=== PATIENT | male | born 1940 | race Caucasian/White ===

== ENCOUNTER 2018-11-29 14:19 | Inpatient (IN) | payer OTHER ==
[2018-11-29] MEDS ORDERED: VANCOMYCIN IV PER PHARMACY 1 EACH MISC MISCELLANE PRN (14:58)
[2018-11-29] MEDS ORDERED: AMPICILLIN-SULBACTAM 3 GM in SODIUM CHLORIDE 0.9% 100 ML IVPB STA (15:01)
--- NOTE | 2018-11-29 15:03 | ED ---
General Adult HPI - General Chief complaint: Skin/Abscess/Foreign Body Stated complaint: Wound on lt elbow Time Seen by Provider: 11/29/18 14:22 Source: patient, family, RN notes reviewed Mode of arrival: ambulatory Limitations: no limitations, physical limitation - History of Present Illness Initial comments: 78-year-old male without any past medical history presents to the emergency department for a chief complaint of left elbow wound 2 weeks. Apparently patient has had edema of the left extremity upper extremity for years. Family member states he tried to drain this twice in the past few months on his own. She states that infection in the left elbow has been worsening since that time. She states that he saw an orthopedic physician in [place] who gave him antibiotics and put the arm in an OCL yesterday. However the physicians that he needs to go to the [facility] emergency department for admission. Family member states he is noncompliant with medicines and has not been taking his antibiotics. He denies any fevers or chills at home. He does admit to pain in the left elbow.Patient has no other complaints at this time including shortness of breath, chest pain, abdominal pain, nausea or vomiting, headache, or visual changes. - Related Data Home Medications Medication Instructions Recorded Confirmed No Known Home Medications 11/29/18 11/29/18 Allergies Allergy/AdvReac Type Severity Reaction Status Date / Time No Known Allergies Allergy Verified 11/29/18 14:46 Review of Systems ROS Statement: Those systems with pertinent positive or pertinent negative responses have been documented in the HPI. ROS Other: All systems not noted in ROS Statement are negative. Past Medical History Past Medical History: No Reported History History of Any Multi-Drug Resistant Organisms: None Reported Past Surgical History: No Surgical Hx Reported Past Psychological History: Unable to Obtain Smoking Status: Never smoker Past Alcohol Use History: None Reported Past Drug Use History: None Reported General Exam Limitations: no limitations, physical limitation General appearance: alert, in no apparent distress Head exam: Present: atraumatic, normocephalic, normal inspection Eye exam: Present: normal appearance, PERRL, EOMI. Absent: scleral icterus, conjunctival injection, periorbital swelling ENT exam: Present: normal exam, mucous membranes moist Neck exam: Present: normal inspection. Absent: tenderness, meningismus, lymphadenopathy Respiratory exam: Present: normal lung sounds bilaterally. Absent: respiratory distress, wheezes, rales, rhonchi, stridor Cardiovascular Exam: Present: regular rate, normal rhythm, normal heart sounds. Absent: systolic murmur, diastolic murmur, rubs, gallop, clicks Extremities exam: Present: full ROM (Patient has full range of motion of the left elbow), normal capillary refill (cap refill < 2 seconds, radial pulse 2+), joint swelling (erythema noted of left elbow with minimal edema), other ( Patient has a 5 cm x 5 cm open wound with purulent bah material to the proximal ulnar aspect of L forearm) Course Vital Signs 11/29/18 11/29/18 14:24 16:07 Temperature 97.8 F 98.0 F Pulse Rate 86 62 Respiratory 20 18 Rate Blood Pressure 167/88 161/96 O2 Sat by Pulse 96 100 Oximetry - Reevaluation(s) Reevaluation #1: 11/29/18 15:20 Patient refusing IV fluids 11/29/18 15:20 OCL removed from left arm, wound inspected Reevaluation #2: 11/29/18 16:33 Patient agrees to IV fluids Medical Decision Making - Medical Decision Making 78-year-old male presents to the emergency department for a chief complaint of left elbow wound 2 weeks. Patient is a poor historian, hard of hearing, does not have any past medical history or take any medications. This wound has been ongoing for the past 2 weeks. Patient initially presented with an OCL and unknown oral antibiotics. On exam patient is a 5 cm x 5 cm open wound on the ulnar aspect of the left proximal forearm.. No material present. CBC unremarkable although patient is slightly anemic with hemoglobin of 9.8. CMP shows a sodium of 128, hyponatremic. Family member states patient is not drinking water or eating solid foods, likely related to dehydration. Patient given a liter of fluids. Anion gap of 10. CMP otherwise unremarkable. X-ray of the left elbow shows a soft tissue defect with focal swelling over the dorsal surface of the proximal ulna. No evidence of air within the soft tissue. Lactic acid within normal limits. Patient was started on IV vancomycin and Unasyn. Will be admitted for continued IV antibiotics and further management of wound. - Lab Data Result diagrams: 11/29/18 15:28 11/29/18 15:28 Lab Results 11/29/18 11/29/18 11/29/18 Range/Units 15:28 15:28 15:28 WBC 7.6 (3.8-10.6) k/uL RBC 3.02 L (4.30-5.90) m/uL Hgb 9.8 L (13.0-17.5) gm/dL Hct 29.5 L (39.0-53.0) % MCV 97.9 (80.0-100.0) fL MCH 32.6 (25.0-35.0) pg MCHC 33.3 (31.0-37.0) g/dL RDW 12.9 (11.5-15.5) % Plt Count 578 H (150-450) k/uL Neutrophils % 87 % Lymphocytes % 6 % Monocytes % 5 % Eosinophils % 1 % Basophils % 0 % Neutrophils # 6.6 (1.3-7.7) k/uL Lymphocytes # 0.5 L (1.0-4.8) k/uL Monocytes # 0.4 (0-1.0) k/uL Eosinophils # 0.1 (0-0.7) k/uL Basophils # 0.0 (0-0.2) k/uL PT (9.0-12.0) sec INR (<1.2) APTT (22.0-30.0) sec Sodium 128 L (137-145) mmol/L Potassium 4.8 (3.5-5.1) mmol/L Chloride 95 L (98-107) mmol/L Carbon Dioxide 23 (22-30) mmol/L Anion Gap 10 mmol/L BUN 8 L (9-20) mg/dL Creatinine 0.45 L (0.66-1.25) mg/dL Est GFR (CKD-EPI)AfAm >90 (>60 ml/min/1.73 sqM) Est GFR (CKD-EPI)NonAf >90 (>60 ml/min/1.73 sqM) Glucose 102 H (74-99) mg/dL Plasma Lactic Acid Garrett 1.1 (0.7-2.0) mmol/L Calcium 8.4 (8.4-10.2) mg/dL Total Bilirubin 0.5 (0.2-1.3) mg/dL AST 16 L (17-59) U/L ALT 28 (21-72) U/L Alkaline Phosphatase 77 (38-126) U/L Total Protein 6.0 L (6.3-8.2) g/dL Albumin 3.1 L (3.5-5.0) g/dL 11/29/18 Range/Units 15:28 WBC (3.8-10.6) k/uL RBC (4.30-5.90) m/uL Hgb (13.0-17.5) gm/dL Hct (39.0-53.0) % MCV (80.0-100.0) fL MCH (25.0-35.0) pg MCHC (31.0-37.0) g/dL RDW (11.5-15.5) % Plt Count (150-450) k/uL Neutrophils % % Lymphocytes % % Monocytes % % Eosinophils % % Basophils % % Neutrophils # (1.3-7.7) k/uL Lymphocytes # (1.0-4.8) k/uL Monocytes # (0-1.0) k/uL Eosinophils # (0-0.7) k/uL Basophils # (0-0.2) k/uL PT 12.7 H (9.0-12.0) sec INR 1.2 H (<1.2) APTT 27.7 (22.0-30.0) sec Sodium (137-145) mmol/L Potassium (3.5-5.1) mmol/L Chloride (98-107) mmol/L Carbon Dioxide (22-30) mmol/L Anion Gap mmol/L BUN (9-20) mg/dL Creatinine (0.66-1.25) mg/dL Est GFR (CKD-EPI)AfAm (>60 ml/min/1.73 sqM) Est GFR (CKD-EPI)NonAf (>60 ml/min/1.73 sqM) Glucose (74-99) mg/dL Plasma Lactic Acid Garrett (0.7-2.0) mmol/L Calcium (8.4-10.2) mg/dL Total Bilirubin (0.2-1.3) mg/dL AST (17-59) U/L ALT (21-72) U/L Alkaline Phosphatase (38-126) U/L Total Protein (6.3-8.2) g/dL Albumin (3.5-5.0) g/dL Disposition Clinical Impression: Wound, open, arm, forearm, Hyponatremia, Hypochloremia, Anemia Disposition: ADMITTED IP TO THIS HOSP Condition: Fair Is patient prescribed a controlled substance at d/c from ED?: No Referrals: None,Stated [Primary Care Provider] - 1-2 days Time of Disposition: 16:35
[2018-11-29] MEDS: SODIUM CHLORIDE 0.9% 500 ML 500 ML IV SCH (15:21)
[2018-11-29] MEDS ORDERED: VANCOMYCIN 750 MG in SODIUM CHLORIDE 0.9% 250 ML IVPB ONE (15:30)
--- NOTE | 2018-11-29 15:50 | XR ---
EXAMINATION TYPE: XR elbow complete LT DATE OF EXAM: 11/29/2018 CLINICAL HISTORY: Injury one week ago with increasing pain and drainage, infection for 2 weeks. TECHNIQUE: Frontal, lateral and oblique images of the left elbow are obtained. COMPARISON: None FINDINGS: Demineralization is present. There is no acute fracture/dislocation evident in the left elb ow. No abnormal fat pad signs are seen. Soft tissue defect with focal swelling over dorsal surface p roximal ulna is noted without radiodense foreign body. IMPRESSION: As above.
[2018-11-29 15:51] LABS: ALT 28 U/L (21-72); AST 16 U/L (17-59); Albumin 3.1 g/dL (3.5-5.0); Alkaline Phosphatase 77 U/L (38-126); Anion Gap 10 mmol/L; Blood Urea Nitrogen 8 mg/dL (9-20); Calcium 8.4 mg/dL (8.4-10.2); Carbon Dioxide 23 mmol/L (22-30); Chloride 95 mmol/L (98-107); Glucose 102 mg/dL (74-99); Potassium 4.8 mmol/L (3.5-5.1); Sodium 128 mmol/L (137-145); Total Bilirubin 0.5 mg/dL (0.2-1.3)
[2018-11-29 15:52] LABS: Basophils % (A) 0 %; Eosinophils # (A) 0.1 k/uL (0-0.7); Eosinophils % (A) 1 %; HCT 29.5 % (39.0-53.0); HGB 9.8 gm/dL (13.0-17.5); Lymphocytes # (A) 0.5 k/uL (1.0-4.8); Lymphocytes % (A) 6 %; MCH 32.6 pg (25.0-35.0); MCHC 33.3 g/dL (31.0-37.0); MCV 97.9 fL (80.0-100.0); Mean Platelet Volume 6.2; Monocytes # (A) 0.4 k/uL (0-1.0); Monocytes % (A) 5 %; Neutrophils # (A) 6.6 k/uL (1.3-7.7); Neutrophils % (A) 87 %; Platelet Count 578 k/uL (150-450); RBC 3.02 m/uL (4.30-5.90); RDW 12.9 % (11.5-15.5); WBC 7.6 k/uL (3.8-10.6)
[2018-11-29 16:00] LABS: INR 1.2 (<1.2); Partial Thromboplastin Time 27.7 sec (22.0-30.0); Prothrombin Time 12.7 sec (9.0-12.0)
[2018-11-29] MEDS ORDERED: SODIUM CHLORIDE 0.9% 1,000 ML IV STA (16:18)
[2018-11-29] MEDS ORDERED: ACETAMINOPHEN TAB 325 MG TAB PO PRN (16:35)
[2018-11-29] MEDS ORDERED: traMADol 50 MG TAB PO PRN (16:35)
[2018-11-29] MEDS ORDERED: NALOXONE 0.4 MG/ML 1 ML VIAL IV PRN ×2 (16:35→18:51)
[2018-11-29 18:38] LABS: Appearance,Urine Clear (Clear); Bilirubin,Urine Negative (Negative); Blood,Urine Negative (Negative); Color,Urine Light Yellow; Glucose,Urine (UA) Negative (Negative); Ketones,Urine Negative (Negative); Leukocyte Esterase,Urine Negative (Negative); Nitrite,Urine Negative (Negative); PH, Urine 8.5 (5.0-8.0); Protein,Urine Negative (Negative); Specific Gravity,Urine 1.009 (1.001-1.035); Urobilinogen,Urine <2.0 mg/dL (<2.0)
--- NOTE | 2018-11-29 18:51 | P.HPIM ---
History of Present Illness H&P Date: 11/29/18 The patient is an 78-year-old male hard of hearing, with an unknown PMH presented to the ED with complaints of left elbow wound with swelling ongoing for several years with recent worsening. The patient notes that he has had swelling of the left elbow for many years though has not had good follow-up. He notes that he was seen by a surgeon in [place] who drained the elbow, place some stitches, and put him on oral antibiotics and advised him to follow-up with a hospital in the since he is a resident of [place]. The patient now notes that his left elbow wound continues to drain pus and is tender. The patient is accompanied by his ex- who notes that they hadn't spoken for nearly 30-40 years and he just recently had gotten in touch with her since he needed help. The patient is a very poor historian and repeatedly mentioned that he does not wish to stay in the hospital more than one night. The patient lives at home and was noted to be drinking juices, which as per his ex-, are his only source of nutrition. She notes that he has not been taking care of himself and does not take any of his medications. She however could not recall his medical history or the medications that he does take. Again, history is very hard to obtain since the patient is difficult to redirect and is fixated on only having his left elbow evaluated and leaving the hospital tomorrow. Patient however denied fever, chills, chest pain, shortness of breath , abdominal pain, nausea, vomiting. In the ED, the patient underwent a copperheads workup with WBC count 7.6, hemoglobin 9.8, platelets 578, and elbow x-ray showing soft tissue swelling overlying the left elbow. He received vancomycin, Unasyn, and 1 L of normal saline, and is being admitted to the medicine service for further management of left elbow ulcer. Review of Systems Pertinent positives and negatives as discussed in HPI, a complete review of systems was performed and all other systems are negative. Past Medical History Past Medical History: No Reported History History of Any Multi-Drug Resistant Organisms: None Reported Past Surgical History: No Surgical Hx Reported Past Psychological History: Unable to Obtain Smoking Status: Never smoker Past Alcohol Use History: None Reported Past Drug Use History: None Reported Medications and Allergies Home Medications Medication Instructions Recorded Confirmed Type No Known Home Medications 11/29/18 11/29/18 History Allergies Allergy/AdvReac Type Severity Reaction Status Date / Time No Known Allergies Allergy Verified 11/29/18 14:46 Physical Exam Vitals: Vital Signs Temp Pulse Resp BP Pulse Ox 11/29/18 17:10 18 11/29/18 16:07 98.0 F 62 18 161/96 100 11/29/18 14:24 97.8 F 86 20 167/88 96 Intake and Output 11/29/18 11/29/18 11/29/18 06:59 14:59 22:59 Other: Weight 44.18 kg General: Disheveled male, [non toxic], [no distress], [appears at stated age], [ normal weight] Derm: Thickened skin over hands, [no unusual ecchymoses] Head: [atraumatic], [normocephalic], [symmetric] Eyes: [EOMI], [no lid lag], [anicteric sclera], [pupils equal round reactive to light] ENT: [Nose and ears atraumatic], [no thrush], [no pharyngeal erythema], very poor dentition Neck: [No thyromegaly], [no cervical lymphadenopathy], [trachea midline], [ supple] Mouth: [no lip lesion], [mucus membranes moist] Cardiovascular: [S1S2 reg], [no murmur], [positive posterior tibial pulse bilateral], [no edema], [capillary refill less than 2 seconds] Lungs: [CTA bilateral], [no rhonchi, no rales] , [no accessory muscle use] Abdominal: [soft], [ nontender to palpation], [no guarding], [no appreciable organomegaly], [normal bowel sounds] Ext: [no gross muscle atrophy], left elbow ulcer 5-7 cm with purulent base and surrounding erythema, tender to palpation, [muscle strength 5 out of 5 in all 4 extremities grossly], [no contractures], finger clubbing noted Neuro: [ CN II-XI grossly intact], [light touch intact all 4 extremities], [ finger to nose within normal limits], Psych: [Alert], [oriented], [appropriate affect] Results CBC & Chem 7: 11/29/18 15:28 11/29/18 15:28 Labs: Abnormal Lab Results - Last 24 Hours (Table) 11/29/18 11/29/18 11/29/18 Range/Units 15:28 15:28 15:28 RBC 3.02 L (4.30-5.90) m/uL Hgb 9.8 L (13.0-17.5) gm/dL Hct 29.5 L (39.0-53.0) % Plt Count 578 H (150-450) k/uL Lymphocytes # 0.5 L (1.0-4.8) k/uL PT 12.7 H (9.0-12.0) sec INR 1.2 H (<1.2) Sodium 128 L (137-145) mmol/L Chloride 95 L (98-107) mmol/L BUN 8 L (9-20) mg/dL Creatinine 0.45 L (0.66-1.25) mg/dL Glucose 102 H (74-99) mg/dL AST 16 L (17-59) U/L Total Protein 6.0 L (6.3-8.2) g/dL Albumin 3.1 L (3.5-5.0) g/dL Assessment and Plan Plan: Left elbow ulcer -Started on Unasyn and vancomycin -Continue with normal saline 120 mL/h -Surgery and ID consults -Obtain wound culture Normocytic anemia -Unable to ascertain if patient has gotten a colonoscopy -Monitor for now Thrombocytosis -Possibly secondary to dehydration versus lung disease -Monitor for now Hyponatremia -Likely due to poor oral intake and malnutrition -Dietary consult -Monitor for now Moderate protein calorie malnutrition -Dietary consult -Social service consult DVT//GI prophylaxis -Heparin -Protonix The patient is admitted with an anticipated greater than than 2 midnight stay for evaluation of left elbow ulcer. CODE STATUS: Full code Discussed with: Patient Anticipated discharge date: 12/01/[address]: Home A total of 60 minutes was spent on the care of this complex patient more than 50 % of the time was spent in counseling and care coordination.
[2018-11-29 19:59] VITALS: BMI 19.0
[2018-11-30] MEDS: SODIUM CHLORIDE 0.9% 1,000 ML IV SCH ×4 (00:10→16:12)
[2018-11-30] MEDS: HEPARIN SODIUM,PORCINE 5,000 UNIT/ML 1 ML VIAL SQ SCH ×3 (00:10→16:01)
[2018-11-30] MEDS: AMPICILLIN-SULBACTAM 3 GM in SODIUM CHLORIDE 0.9% 100 ML IVPB SCH ×3 (00:12→16:01)
[2018-11-30] MEDS: VANCOMYCIN 750 MG in SODIUM CHLORIDE 0.9% 250 ML IVPB SCH ×3 (01:33→16:12)
--- NOTE | 2018-11-30 15:10 | P.PN ---
Subjective Progress Note Date: 11/30/18 The patient was seen and examined the bedside. He endorsed mild left elbow pain but otherwise denied fever, chills, chest pain, short of breath, nausea, vomiting. He notes that his elbow continues to have small amount of drainage. Objective - Vital Signs Vital signs: Vital Signs Temp 97.5 F L 11/30/18 07:00 Pulse 68 11/30/18 07:00 Resp 16 11/30/18 07:51 BP 127/68 11/30/18 07:00 Pulse Ox 100 11/30/18 07:00 Intake & Output 11/29/18 11/30/18 11/30/18 18:59 06:59 18:59 Intake Total 1000 Output Total 800 Balance 200 Weight 44.18 kg 44.18 kg Intake: Amount of Fluid Infused ( 1000 ml) Output: Urine 800 Other: Voiding Method Urinal # Voids 1 - Exam General: Non-toxic, in no acute distress, appears stated age, normal weight HEENT: NC/AT, anicteric sclerae, moist conjunctiva, no lid-lag, PERRLA Cardiovascular: S1/S2 wnl, no murmurs, rubs, or gallops Lungs: Clear to auscultation, normal respiratory effort, no accessory muscle use Abdominal: Soft, non-tender, non-distended, no guarding, rebound, or rigidity Skin: Warm, dry Extremities: Left elbow ulcer with purulent base, draining, tenderness with palpation Psychiatric: Alert and oriented to person, place and time, appropriate affect Neuro: CN II-XII grossly intact, Strength 5/5 in all 4 extremities, Speech intact, Sensation to light touch grossly intact throughout - Labs CBC & Chem 7: 11/29/18 15:28 11/29/18 15:28 Labs: Abnormal Lab Results - Last 24 Hours (Table) 11/29/18 11/29/18 11/29/18 Range/Units 15:28 15:28 15:28 RBC 3.02 L (4.30-5.90) m/uL Hgb 9.8 L (13.0-17.5) gm/dL Hct 29.5 L (39.0-53.0) % Plt Count 578 H (150-450) k/uL Lymphocytes # 0.5 L (1.0-4.8) k/uL PT 12.7 H (9.0-12.0) sec INR 1.2 H (<1.2) Sodium 128 L (137-145) mmol/L Chloride 95 L (98-107) mmol/L BUN 8 L (9-20) mg/dL Creatinine 0.45 L (0.66-1.25) mg/dL Glucose 102 H (74-99) mg/dL AST 16 L (17-59) U/L Total Protein 6.0 L (6.3-8.2) g/dL Albumin 3.1 L (3.5-5.0) g/dL Urine pH (5.0-8.0) 11/29/18 Range/Units 16:35 RBC (4.30-5.90) m/uL Hgb (13.0-17.5) gm/dL Hct (39.0-53.0) % Plt Count (150-450) k/uL Lymphocytes # (1.0-4.8) k/uL PT (9.0-12.0) sec INR (<1.2) Sodium (137-145) mmol/L Chloride (98-107) mmol/L BUN (9-20) mg/dL Creatinine (0.66-1.25) mg/dL Glucose (74-99) mg/dL AST (17-59) U/L Total Protein (6.3-8.2) g/dL Albumin (3.5-5.0) g/dL Urine pH 8.5 H (5.0-8.0) Microbiology - Last 24 Hours (Table) 11/29/18 15:46 Gram Stain - Preliminary Elbow - Left Wound Culture - Preliminary Assessment and Plan Plan: Left elbow ulcer -Continue with vancomycin and Unasyn -Continue with normal saline 120 mL/h -Surgery and ID consults, recs pending -We'll follow up wound culture Normocytic anemia -Unable to ascertain if patient has gotten a colonoscopy -Monitor for now Thrombocytosis -Possibly secondary to dehydration versus lung disease -Monitor for now Hyponatremia -Likely due to poor oral intake and malnutrition -Dietary consult -Monitor for now Moderate protein calorie malnutrition -Dietary consult -Social service consult DVT//GI prophylaxis -Heparin -Protonix The patient is admitted with an anticipated greater than than 2 midnight stay for evaluation of left elbow ulcer. CODE STATUS: Full code Discussed with: Patient Anticipated discharge date: 12/01/[address]: Home A total of 60 minutes was spent on the care of this complex patient more than 50 % of the time was spent in counseling and care coordination.
--- NOTE | 2018-11-30 15:47 | P.GSCN ---
History of Present Illness Consult date: 11/30/18 History of present illness: CHIEF COMPLAINT: Left open elbow wound HISTORY OF PRESENT ILLNESS: The patient is a 78 year old male seen and evaluated with his nurse and infectious disease team. Patient reports 16 year history of swelling proximal to left elbow. He is a [place] citizen from [facility] and had all of his care including chronic wound debridements at [place]. He reports for the last 1 week he had prior debridment with the wound being closed and now has left elbow swelling with moderate drainage. He came to the [place] as his [place] care has . He is hard of hearing. Xrays reviewed with concern of chronic wound and involvement of near joint space. He reports "I have no feeling" at the chronic ulcer. He reports possible previous biopsies. PAST MEDICAL HISTORY: See list PAST SURGICAL HISTORY: See list. MEDICATIONS: See list. ALLERGIES: See list. SOCIAL HISTORY: No illicit drug use FAMILY HISTORY: No reports of Crohn's disease or inflammatory bowel disease REVIEW OF ORGAN SYSTEMS: CONSTITUTIONAL: No fevers or chills HEENT: No troubles with vision or hearing. No reports of dysphagia. ENDOCRINE: No reports of thyroid disorders. No diabetes. CARDIOVASCULAR: No heart attack. No chest pain. RESPIRATORY: No shortness of breath or pneumonia. GASTROINTESTINAL: No reports of recent blood in stools. NEURO: No reports of stroke or seizure disorders. PSYCH: No depression or suicidal ideation HEMATOLOGIC: No easy bruising or bleeding LYMPHATIC: The patient denies any lumps and bumps around the neck. GENITOURINARY: Denies any blood in urine or increased urinary frequency. MUSCULOSKELETAL: Denies back pain, stiffness or joint arthritis. SKIN: Reports chronic wound along left elbow for 16 years. PHYSICAL EXAM: VITAL SIGNS: Reviewed. GENERAL: Well-developed in no acute distress. HEENT: No sclera icterus. Extraocular movements grossly intact. Moist buccal mucosa. Head is atraumatic, normocephalic. Hears conversational speech. No nasal drainage. Poor dentition NECK: Supple without lymphadenopathy. CHEST: Non-labored respirations and equal bilateral excursions. CARDIOVASCULAR: Regular rate with regular rhythm. Palpable 2+ radial pulses. ABDOMEN: Soft. Nondistended. MUSCULOSKELETAL: No clubbing, cyanosis or edema. Moderate edema involving left elbow. NEUROLOGIC: No focal or lateralizing signs. Cranial nerves II through XII grossly intact. PSYCH: Appropriate affect. Alert and oriented to person, place and time. SKIN: 4-5 cm ulcer insensate incorporating muscle lateral to left elbow with active purulent drainage. LABS: Reviewed STUDIES: Reviewed ASSESSMENT: 1. Chronic open left elbow wound PLAN: 1. Recommend defer to Ortho consultation as near left elbow joint space involvement 2. May need MRI to elucidate for depth of infection and joint space involvement 3. Infectious consultation. 4. Medical management of multiple medical co-morbidities including hyponatremia. Thank you for this kind consultation. Past Medical History Past Medical History: No Reported History Additional Past Medical History / Comment(s): somewhat a poor historian,pt stated he has'nt had much education.origianlly came from [facility]. [place], cataracts, pt stated for 16 years has had problem with fluid build up on lt arm (has been to [facility] to a dr )and an area on lt side of forehead which is improved. History of Any Multi-Drug Resistant Organisms: None Reported Past Surgical History: No Surgical Hx Reported Additional Past Surgical History / Comment(s): pt denies any sx Past Anesthesia/Blood Transfusion Reactions: No Reported Reaction Past Psychological History: Unable to Obtain Smoking Status: Never smoker Past Alcohol Use History: None Reported Past Drug Use History: None Reported - Past Family History Mother Family Medical History: CVA/TIA, Hypertension Additional Family Medical History / Comment(s): paralyzed Father Additional Family Medical History / Comment(s): at age 73 unk cause Medications and Allergies Home Medications Medication Instructions Recorded Confirmed Type No Known Home Medications 11/29/18 11/29/18 History Allergies Allergy/AdvReac Type Severity Reaction Status Date / Time No Known Allergies Allergy Verified 11/29/18 14:46 Surgical - Exam Vital Signs Temp Pulse Resp BP Pulse Ox 97.8 F 86 20 167/88 96 11/29/18 14:24 11/29/18 14:24 11/29/18 14:24 11/29/18 14:24 11/29/18 14:24 Results - Labs 11/29/18 15:28 11/29/18 15:28 Abnormal Lab Results - Last 24 Hours (Table) 11/29/18 11/29/18 11/29/18 Range/Units 15:28 15:28 15:28 RBC 3.02 L (4.30-5.90) m/uL Hgb 9.8 L (13.0-17.5) gm/dL Hct 29.5 L (39.0-53.0) % Plt Count 578 H (150-450) k/uL Lymphocytes # 0.5 L (1.0-4.8) k/uL PT 12.7 H (9.0-12.0) sec INR 1.2 H (<1.2) Sodium 128 L (137-145) mmol/L Chloride 95 L (98-107) mmol/L BUN 8 L (9-20) mg/dL Creatinine 0.45 L (0.66-1.25) mg/dL Glucose 102 H (74-99) mg/dL AST 16 L (17-59) U/L Total Protein 6.0 L (6.3-8.2) g/dL Albumin 3.1 L (3.5-5.0) g/dL Urine pH (5.0-8.0) 11/29/18 Range/Units 16:35 RBC (4.30-5.90) m/uL Hgb (13.0-17.5) gm/dL Hct (39.0-53.0) % Plt Count (150-450) k/uL Lymphocytes # (1.0-4.8) k/uL PT (9.0-12.0) sec INR (<1.2) Sodium (137-145) mmol/L Chloride (98-107) mmol/L BUN (9-20) mg/dL Creatinine (0.66-1.25) mg/dL Glucose (74-99) mg/dL AST (17-59) U/L Total Protein (6.3-8.2) g/dL Albumin (3.5-5.0) g/dL Urine pH 8.5 H (5.0-8.0) Microbiology - Last 24 Hours (Table) 11/29/18 15:46 Gram Stain - Preliminary Elbow - Left Wound Culture - Preliminary Diabetes panel 11/29/18 Range/Units 15:28 Sodium 128 L (137-145) mmol/L Potassium 4.8 (3.5-5.1) mmol/L Chloride 95 L (98-107) mmol/L Carbon Dioxide 23 (22-30) mmol/L BUN 8 L (9-20) mg/dL Creatinine 0.45 L (0.66-1.25) mg/dL Glucose 102 H (74-99) mg/dL Calcium 8.4 (8.4-10.2) mg/dL AST 16 L (17-59) U/L ALT 28 (21-72) U/L Alkaline Phosphatase 77 (38-126) U/L Total Protein 6.0 L (6.3-8.2) g/dL Albumin 3.1 L (3.5-5.0) g/dL Calcium panel 11/29/18 Range/Units 15:28 Calcium 8.4 (8.4-10.2) mg/dL Albumin 3.1 L (3.5-5.0) g/dL Pituitary panel 11/29/18 Range/Units 15:28 Sodium 128 L (137-145) mmol/L Potassium 4.8 (3.5-5.1) mmol/L Chloride 95 L (98-107) mmol/L Carbon Dioxide 23 (22-30) mmol/L BUN 8 L (9-20) mg/dL Creatinine 0.45 L (0.66-1.25) mg/dL Glucose 102 H (74-99) mg/dL Calcium 8.4 (8.4-10.2) mg/dL Adrenal panel 11/29/18 Range/Units 15:28 Sodium 128 L (137-145) mmol/L Potassium 4.8 (3.5-5.1) mmol/L Chloride 95 L (98-107) mmol/L Carbon Dioxide 23 (22-30) mmol/L BUN 8 L (9-20) mg/dL Creatinine 0.45 L (0.66-1.25) mg/dL Glucose 102 H (74-99) mg/dL Calcium 8.4 (8.4-10.2) mg/dL Total Bilirubin 0.5 (0.2-1.3) mg/dL AST 16 L (17-59) U/L ALT 28 (21-72) U/L Alkaline Phosphatase 77 (38-126) U/L Total Protein 6.0 L (6.3-8.2) g/dL Albumin 3.1 L (3.5-5.0) g/dL - Imaging Additional studies: Xray elbowed reviewed with large soft tissue defect near elbow joint space Assessment and Plan (1) Medical care unavailable Current Visit: Yes Status: Acute Code(s): Z75.9 - UNSP PROBLEM RELATED TO MED FACILITIES AND OTH HEALTH CARE SNOMED Code(s): 905867633 (2) Anemia Current Visit: Yes Status: Acute Code(s): D64.9 - ANEMIA, UNSPECIFIED SNOMED Code(s): 705675863 (3) Hypochloremia Current Visit: Yes Status: Acute Code(s): E87.8 - OTH DISORDERS OF ELECTROLYTE AND FLUID BALANCE, NEC SNOMED Code(s): 60292501 (4) Hyponatremia Current Visit: Yes Status: Acute Code(s): E87.1 - HYPO-OSMOLALITY AND HYPONATREMIA SNOMED Code(s): 28290062 (5) Wound, open, arm, forearm Current Visit: Yes Status: Acute Code(s): S51.809A - UNSPECIFIED OPEN WOUND OF UNSPECIFIED FOREARM, INIT ENCNTR SNOMED Code(s): 508376483
[2018-12-01] MEDS: HEPARIN SODIUM,PORCINE 5,000 UNIT/ML 1 ML VIAL SQ SCH ×4 (00:19→23:53)
[2018-12-01] MEDS: VANCOMYCIN 750 MG in SODIUM CHLORIDE 0.9% 250 ML IVPB SCH ×4 (00:24→23:53)
[2018-12-01] MEDS: PIPERACILLIN-TAZOBACTAM 3.375 GM in SODIUM CHLORIDE 0.9% 100 ML IVPB SCH ×3 (02:56→15:10)
[2018-12-01] MEDS: SODIUM CHLORIDE 0.9% 1,000 ML IV SCH ×3 (02:56→15:10)
--- NOTE | 2018-12-01 04:40 | CONS ---
CONSULTATION DATE OF SERVICE: 11/30/2018. REASON FOR CONSULTATION: Left forearm nonhealing wound with underlying infection. HISTORY OF PRESENT ILLNESS: The patient is an 78-year-old white male presenting to the ER with a chief complaints of progressive worsening of his wound to his left forearm that has been going on for the last 2 weeks. Apparently the patient did mention he had this wound for many years now and that has been previously evaluated and treated in [place]. Apparently the patient did have debridement of this wound and drainage. However, the patient is not clear about any cultures or any biopsy. As the patient said was getting older, he was unable to get any treatment there. Hence he came to [facility] ER for further evaluation of the same. The patient has been complaining of some pain to the left forearm wound area, more of a dull aching pain. Unable to further. Denies any foul-smelling drainage from it. Denies having any fevers, rigors or chills. Denies any chest pain, shortness of breath or cough. No abdominal pain or cough or any diarrhea. The patient was evaluated by the ER physician. The patient did have x-rays of the elbow which showed demineralization is present. No acute fracture or dislocation seen. No abdominal fat pad signs are seen or any foreign body. The patient has been afebrile and his white count was normal and the patient was started on vancomycin and Unasyn. He did have a culture obtained tissue culture showing gram- negative bacilli. Infectious Disease was consulted for further recommendation regarding antibiotic therapy. Unfortunately, the patient is currently refusing any further IV antibiotics saying that it is a poison and would not like to get any more poison into his system. REVIEW OF SYSTEMS: Positive points have been mentioned in HPI. Rest of the systems negative. PAST MEDICAL HISTORY: wound to the left forearm. No other major illnesses. PAST SURGICAL HISTORY: Drainage of this and debridement of this left forearm wound multiple times. SOCIAL HISTORY: The patient denies smoking, drinking or drug use. FAMILY HISTORY: No pertinent findings noticed. ALLERGIES: No known drug allergies. MEDICATION: Currently include the patient is on Tylenol, Unasyn, heparin, Narcan, multivitamin, vancomycin. PHYSICAL EXAMINATION: On examination blood pressure is 156/85 with a pulse of 69, temperature 98.1. He is 99% on room air. General description is an elderly male lying in bed in no distress. No tachypnea or accessory muscles of respiration use. HEENT examination shows no pallor or scleral icterus. Oral mucosal membranes are dry. No pharyngeal erythema or thrush. Neck: Trachea central. No thyromegaly. Lungs: Unlabored breathing. Clear to auscultation anteriorly. Heart S1, S2. Regular rate and rhythm. Abdomen soft, no tenderness. No guarding or rigidity. Extremities: No edema of the feet. Skin examination: No rash or mass palpable. Examination of the left forearm dorsal aspect with elbow area there is a wound with some slough tissue at the bottom. No surrounding redness. Did have some swelling. No foul smelling drainage. Neurological: Patient is awake, alert, oriented times three. Mood and affect normal. LABS: Hemoglobin 9.8, white count 7.7, BUN of 8, creatinine 0.45. Cultures currently showing a gram-negative. 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 PLAN: 1. MRI scan of the left forearm to determine etiology of this wound. 2. Patient subsequently debridement .. 3. Will be start the patient on Zosyn in view of the gram-negative in the initial culture, however, the patient despite explaining to him . 4. We will follow up on clinical condition and culture to further adjust medication if needed. Thank you for this consultation. We will follow this patient along with you. MMODL / IJN: [id number] /
[2018-12-01 11:04] LABS: HCT 31.6 % (39.0-53.0); HGB 10.3 gm/dL (13.0-17.5); MCH 31.9 pg (25.0-35.0); MCHC 32.8 g/dL (31.0-37.0); MCV 97.4 fL (80.0-100.0); Mean Platelet Volume 6.9; Platelet Count 436 k/uL (150-450); RBC 3.24 m/uL (4.30-5.90); RDW 13.3 % (11.5-15.5); WBC 5.4 k/uL (3.8-10.6)
[2018-12-01 11:20] LABS: Anion Gap 4 mmol/L; Blood Urea Nitrogen 9 mg/dL (9-20); Calcium 7.8 mg/dL (8.4-10.2); Carbon Dioxide 23 mmol/L (22-30); Chloride 105 mmol/L (98-107); Glucose 105 mg/dL (74-99); Sodium 132 mmol/L (137-145)
--- NOTE | 2018-12-01 11:33 | P.CNOR ---
History of Present Illness - [facility] Consult date: 12/01/18 History of present illness: The patient is an 78 year old male admitted to internal medicine with a chronic infected wound over his left elbow. The patient is a poor historian, is very hard of hearing and there is a language barrier that makes obtaining a history very difficult. He reports 16 year history of swelling proximal to left elbow. He is a [place] citizen from [facility] and had all of his care including chronic wound debridements at [place]. He reports for the last 1 week he had prior debridment with the wound being closed and now has left elbow swelling with moderate drainage. He came to the [facility] as his [place] care has . He is hard of hearing. He reports "I have no feeling" at the chronic ulcer. He reports possible previous biopsies Past Medical History Past Medical History: No Reported History Additional Past Medical History / Comment(s): somewhat a poor historian,pt stated he has'nt had much education.danette came from [facility]. [place], cataracts, pt stated for 16 years has had problem with fluid build up on lt arm (has been to [place] to a dr )and an area on lt side of forehead which is improved. History of Any Multi-Drug Resistant Organisms: None Reported Past Surgical History: No Surgical Hx Reported Additional Past Surgical History / Comment(s): pt denies any sx Past Anesthesia/Blood Transfusion Reactions: No Reported Reaction Past Psychological History: Unable to Obtain Smoking Status: Never smoker Past Alcohol Use History: None Reported Past Drug Use History: None Reported - Past Family History Mother Family Medical History: CVA/TIA, Hypertension Additional Family Medical History / Comment(s): paralyzed Father Additional Family Medical History / Comment(s): at age 73 unk cause Medications and Allergies Home Medications Medication Instructions Recorded Confirmed Type No Known Home Medications 11/29/18 11/29/18 History Allergies Allergy/AdvReac Type Severity Reaction Status Date / Time No Known Allergies Allergy Verified 11/29/18 14:46 Physical Examination the patient is resting comfortably in his bed. He is alert and able to answer questions, but is very hard of hearing. He demonstrates nonlabored breathing with symmetric chest expansion. His head is normocephalic and atraumatic. His abdomen is nonobese. A focused examination of the left arm was conducted. There is a dressing over the elbow that is saturated with purulent, foul- smelling drainage. The dressing was taken down and the elbow inspected. There is diffuse swelling and hypertrophic skin over the olecranon and a large open wound with active purulent drainage. There is minimal erythema and no warmth. There is no pain with passive range of motion of the elbow. There is decreased sensation around the area of ulceration. There is no exposed bone. Results x-rays of the left elbow show no acute bony pathology or signs of osteomyelitis. On the lateral view there is soft tissue swelling consistent with his ulcer. - Labs Labs: Abnormal Lab Results - Last 24 Hours (Table) 12/01/18 12/01/18 Range/Units 10:36 10:36 RBC 3.24 L (4.30-5.90) m/uL Hgb 10.3 L (13.0-17.5) gm/dL Hct 31.6 L (39.0-53.0) % Sodium 132 L (137-145) mmol/L Creatinine 0.47 L (0.66-1.25) mg/dL Glucose 105 H (74-99) mg/dL Calcium 7.8 L (8.4-10.2) mg/dL Microbiology - Last 24 Hours (Table) 11/29/18 15:46 Gram Stain - Preliminary Elbow - Left Wound Culture - Preliminary Gram Neg Bacilli 11/29/18 15:28 Blood Culture - Preliminary Blood No Growth after 24 hours H & H 11/29/18 12/01/18 Range/Units 15:28 10:36 Hgb 9.8 L 10.3 L (13.0-17.5) gm/dL Hct 29.5 L 31.6 L (39.0-53.0) % Coagulation 11/29/18 Range/Units 15:28 INR 1.2 H (<1.2) Result Diagrams: 12/01/18 10:36 12/01/18 10:36 Assessment and Plan (1) Wound, open, arm, forearm Current Visit: Yes Status: Acute Code(s): S51.809A - UNSPECIFIED OPEN WOUND OF UNSPECIFIED FOREARM, INIT ENCNTR SNOMED Code(s): 989940607 Plan: The patient has a grossly 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 There is no sign of septic arthritis on clinical exam as he has no pain with passive range of motion of the elbow. There is however gross purulence and nonviable tissue over the olecranon and proximal ulna. I agree in obtaining an MRI to better evaluate the extent of the infection and rule out underlying osteomyelitis as a cause for continued infection. Due to the patient's poor hearing and a language barrier it is difficult to communicate and gauge his understanding of a surgical plan. I do think that he would benefit from an operative debridement and application of a wound VAC in the operating room. The chart states that he would like to be discharged after one day in the hospital and I stressed to him that he will likely be in the hospital for several days. His MRI is scheduled for tomorrow. I will plan on performing a surgical debridement and application of a VAC dressing following the MRI either tomorrow afternoon or Sunday. Dr. Wagner from infectious disease has been consulted as well. I informed the patient that I will place the initial VAC dressing and following surgery all wound care and bedside VAC dressing changes and wound care will be under the direction of the wound team both in the hospital and as an outpatient. I stressed that he will need close follow-up both with infectious disease and the wound center to get his wound to heal; surgery is only the initial step in getting his wound to heal. The patient was also informed about the possibility of need for further surgery including repeat debridements, grafting, and possibly amputation. I explained this in a way that he could understand and he seemed agreeable. We will continue to follow and make recommendations accordingly. Time with Patient: Greater than 30
--- NOTE | 2018-12-01 19:58 | P.PN ---
Subjective Progress Note Date: 12/01/18 The patient was seen and examined the bedside. He endorsed improved left elbow pain and denied fever, chills, chest pain, short of breath, nausea, vomiting. He notes that his elbow continues to have small amount of drainage. Objective - Vital Signs Vital signs: Vital Signs Temp 97.9 F 12/01/18 14:20 Pulse 63 12/01/18 14:20 Resp 18 12/01/18 15:28 BP 133/78 12/01/18 14:20 Pulse Ox 99 12/01/18 14:20 Intake & Output 12/01/18 12/01/18 12/02/18 06:59 18:59 06:59 Intake Total 400 Output Total 700 700 Balance 400 -700 -700 Intake: Oral 400 Output: Urine 700 700 Other: Voiding Method Urinal # Voids 1 1 - Exam General: Non-toxic, in no acute distress, appears stated age, normal weight HEENT: NC/AT, anicteric sclerae, moist conjunctiva, no lid-lag, PERRLA Cardiovascular: S1/S2 wnl, no murmurs, rubs, or gallops Lungs: Clear to auscultation, normal respiratory effort, no accessory muscle use Abdominal: Soft, non-tender, non-distended, no guarding, rebound, or rigidity Skin: Warm, dry Extremities: Left elbow ulcer with overlying dressing, clean, and dry Psychiatric: Alert and oriented to person, place and time, appropriate affect Neuro: CN II-XII grossly intact, Strength 5/5 in all 4 extremities, Speech intact, Sensation to light touch grossly intact throughout - Labs CBC & Chem 7: 12/01/18 10:36 12/01/18 10:36 Labs: Abnormal Lab Results - Last 24 Hours (Table) 12/01/18 12/01/18 Range/Units 10:36 10:36 RBC 3.24 L (4.30-5.90) m/uL Hgb 10.3 L (13.0-17.5) gm/dL Hct 31.6 L (39.0-53.0) % Sodium 132 L (137-145) mmol/L Creatinine 0.47 L (0.66-1.25) mg/dL Glucose 105 H (74-99) mg/dL Calcium 7.8 L (8.4-10.2) mg/dL Microbiology - Last 24 Hours (Table) 11/29/18 15:28 Blood Culture - Preliminary Blood No Growth after 48 hours 11/29/18 15:46 Gram Stain - Preliminary Elbow - Left Wound Culture - Preliminary Gram Neg Bacilli Assessment and Plan Plan: Left elbow ulcer -Surgery, ID, and Orthopedics consults appreciated -Will undergo debridement with wound-vac placement tomorrow by Ortho -Continue with vancomycin and Zosyn -Continue with normal saline 120 mL/h Normocytic anemia -Unable to ascertain if patient has gotten a colonoscopy -Monitor for now Thrombocytosis, resolved Hyponatremia, improved -Likely due to poor oral intake and malnutrition -Dietary consult -Monitor for now Moderate protein calorie malnutrition -Dietary consult -Social service consult DVT//GI prophylaxis -Heparin -Protonix Discussed with: Patient Anticipated discharge date: 12/04/[address]: Home A total of 35 minutes was spent on the care of this complex patient more than 50 % of the time was spent in counseling and care coordination.
--- NOTE | 2018-12-02 00:05 | PN ---
PROGRESS NOTE DATE OF SERVICE: 12/01/2018. REASON FOR FOLLOWUP: Left forearm chronic wound with secondary infection. INTERVAL HISTORY: The patient is currently afebrile. He is breathing comfortably. Denies having any chest pain. No shortness of breath or cough. No worsening pain to the left forearm. No abdominal pain. No diarrhea. PHYSICAL EXAMINATION: Blood pressure 123/72 with a pulse of 63, temperature 97.9. He is 99% on room air. General description is an elderly male lying in bed in no distress. Respiratory system: Unlabored breathing. Clear to auscultation anteriorly. Heart S1, S2. Regular rate and rhythm. Abdomen is soft. No tenderness. Left forearm the wound is currently dressed up. No obvious drainage on the dressing. LABS: Hemoglobin 10.1, white count 5.4 with a BUN of 9 and creatinine 0.47. Local wound cultures showing presumptive Staph aureus Citrobacter. DIAGNOSTIC IMPRESSION AND PLAN: Patient with left forearm chronic nonhealing wound. Awaiting an MRI of the affected areas to determine the depth of the infection surgical debridement and deep cultures. In view of the patient refused IV antibiotic therapy, we will discontinue Zosyn and start the patient on oral for Citrobacter and continue vancomycin to cover for the Staph aureus. Continue supportive care. MMODL / IJN: [id number] /
[2018-12-02] MEDS: SODIUM CHLORIDE 0.9% 1,000 ML IV SCH ×3 (04:59→19:58)
[2018-12-02] MEDS ORDERED: VANCOMYCIN TROUGH DUE 1 EACH MISC MISCELLANE ONE (07:00)
[2018-12-02] MEDS: VANCOMYCIN 750 MG in SODIUM CHLORIDE 0.9% 250 ML IVPB SCH ×2 (07:52→15:00)
[2018-12-02] MEDS: HEPARIN SODIUM,PORCINE 5,000 UNIT/ML 1 ML VIAL SQ SCH ×3 (07:52→23:49)
[2018-12-02] MEDS: CIPROFLOXACIN HCL 500 MG TAB PO SCH ×2 (08:16→19:58)
--- NOTE | 2018-12-02 10:50 | P.PN ---
Subjective Progress Note Date: 12/02/18 This patient is an 78-year-old male that presented to [facility] ED yesterday for evaluation and treatment of a left elbow wound. The patient is a [place] citizen from [place], there is a language barrier present, and he is also a poor historian, as well as hard of hearing. Patient has reported a 16 year history with swelling to the left elbow, and with multiple debridements for his elbow in [place]. He reports he had a debridement one week prior, with the wound being closed, and now has experienced increased drainage from the site. Currently, the patient notes pain in left elbow. He denies any other orthopedic complaints at this time. He denies fevers or chills. Vital signs stable. Objective - Vital Signs Vital signs: Vital Signs Temp 97.0 F L 12/02/18 06:05 Pulse 61 12/02/18 06:05 Resp 18 12/02/18 06:05 BP 153/73 12/02/18 06:05 Pulse Ox 99 12/02/18 06:05 Intake & Output 12/01/18 12/02/18 12/02/18 18:59 06:59 18:59 Intake Total 250 Output Total 700 2100 Balance -700 -1850 Intake: Oral 250 Output: Urine 700 2100 Other: Voiding Method Urinal Urinal # Voids 1 - Exam On examination, the patient is sitting up in bed in no acute distress. The patient is alert and oriented 3. On inspection of the left elbow, there is a dressing in place. The dressing is clean, dry, and intact. The left upper extremity is warm and well perfused with brisk capillary refill. Patient is able to wiggle his fingers with no issue. Neurovascular is intact of the left upper extremity. - Labs CBC & Chem 7: 12/01/18 10:36 12/01/18 10:36 Labs: Abnormal Lab Results - Last 24 Hours (Table) 12/01/18 12/01/18 Range/Units 10:36 10:36 RBC 3.24 L (4.30-5.90) m/uL Hgb 10.3 L (13.0-17.5) gm/dL Hct 31.6 L (39.0-53.0) % Sodium 132 L (137-145) mmol/L Creatinine 0.47 L (0.66-1.25) mg/dL Glucose 105 H (74-99) mg/dL Calcium 7.8 L (8.4-10.2) mg/dL Microbiology - Last 24 Hours (Table) 11/29/18 15:46 Gram Stain - Preliminary Elbow - Left Wound Culture - Preliminary Citrobacter braakii Presumptive Staph aureus 11/29/18 15:28 Blood Culture - Preliminary Blood No Growth after 48 hours - Imaging and Cardiology Left elbow xray 11/29/18: no acute bony abnormalities, no signs of osteomylitis. Soft tissue swelling consistent with ulcer. Assessment and Plan Assessment: Open wound of the left elbow Plan: - We will plan for a surgical debridement of the elbow wound with wound VAC placement by Dr. Briggs either this afternoon or Sunday, pending MRI results , consent, and medical clearance. - All antibiotics and wound care will be deferred to infectious disease post- operatively. - We will continue to follow and make recommendations accordingly. - Patient discussed with Dr. Briggs.
--- NOTE | 2018-12-02 14:32 | MR ---
EXAMINATION TYPE: MR elbow LT wo/w con DATE OF EXAM: 12/02/2018 COMPARISON: Left elbow x-ray from 3 days earlier. HISTORY: L elbow ulcer w/ joint space involvement CONTRAST: Standard multiplanar, multisequence MRI departmental protocol utilizing 4.5 mL intravenous Gadavist g adolinium contrast. FINDINGS: Correlating with x-ray at level of proximal forearm there is heterogeneous nonenhancing sorin rly isointense soft tissue swelling along dorsal surface with skin breakthrough that has deeper subcu taneous extension seen best axial image 9, there is involvement of the dorsal surface subcutaneous fa t with irregular heterogeneous oval shaped structure extending proximally to level of joint space wit h rim low T1 and T2 signal measuring 4.8 x 1.5 cm sagittal image 20 that shows just deep to this rim peripheral irregular enhancement with heterogeneous nodular enhancement also identified along the per iphery. There is small focus of increased T2 signal and edema in the dorsal or posterior aspect of th e olecranon seen best sagittal image 27 series 1201 and 701 measuring roughly 1.7 x 0.9 cm x 1.6 cm t ransversely axial image 24 series 801. No osseous cortical destruction is evident. Distal humerus and proximal ulna show no suspicious edema or enhancement. Joint space shows no signif icant fluid or fluid collection with rim peripheral enhancement. IMPRESSION: Ulceration and dorsal surface fluid collection suspicious for abscess in old hematoma with area of ac uw osteomyelitis unable to exclude involving the posterior aspect of the olecranon as detailed above .
--- NOTE | 2018-12-02 15:29 | P.PN ---
Subjective Progress Note Date: 12/02/18 Principal diagnosis: left elbow swelling Patient is an 78-year-old male who is extremely hard of hearing with no past medical history who initially presented to the emergency department with complaints of a left elbow wound with swelling. In the ER the patient underwent a comprehensive workup with a white blood cell count of 7.6, hemoglobin 9.8, platelets of 58, and elbow x-ray showing soft tissue swelling. He was placed on Vanco, Unasyn, and received 1 L of normal saline. He was admitted for further monitoring of left elbow infected ulcer. He reports that he received some care for this in [place] but was [place] Infectious disease was consulted who recommended continuing IV antibiotics. Orthopedics was consulted who recommended debridement of the area and an MRI. MRI is currently pending and OR is planned for 5 PM today. Patient seen and examined at bedside. No chest pain, SOB or nausea. Complaining about not eating. Does not seem to understand severity of illness. Objective - Vital Signs Vital signs: Vital Signs Temp 97.5 F L 12/02/18 13:58 Pulse 55 L 12/02/18 13:58 Resp 18 12/02/18 13:58 BP 161/79 12/02/18 13:58 Pulse Ox 100 12/02/18 13:58 Intake & Output 12/01/18 12/02/18 12/02/18 18:59 06:59 18:59 Intake Total 250 Output Total 700 2100 Balance -700 -1850 Intake: Oral 250 Output: Urine 700 2100 Other: Voiding Method Urinal Urinal # Voids 1 1 - Exam General: non toxic, no distress, appears at stated age Derm: Dressing applied to left arm, warm, dry Head: atraumatic, normocephalic, symmetric Eyes: EOMI, no lid lag, anicteric sclera Mouth: no lip lesion, mucus membranes moist Cardiovascular: S1S2 reg, no murmur, positive posterior tibial pulse bilateral, Lungs: CTA bilateral, no rhonchi, no rales , no accessory muscle use Abdominal: soft, nontender to palpation, no guarding, no appreciable organomegaly Ext: no gross muscle atrophy, no edema, no contractures Neuro: CN II-XI grossly intact, no focal neuro deficits Psych: Alert, oriented, appropriate affect - Labs CBC & Chem 7: 12/01/18 10:36 02/03/19 10:36 Labs: Microbiology - Last 24 Hours (Table) 11/29/18 15:46 Gram Stain - Preliminary Elbow - Left Wound Culture - Preliminary Citrobacter braakii Presumptive Staph aureus 11/29/18 15:28 Blood Culture - Preliminary Blood No Growth after 48 hours Assessment and Plan Assessment: Left elbow ulcer with infection -Ortho and ID recs appreciated -Plan is for surgery today -Patient refusing vanco, on cipro -Patient without insurance Normocytic anemia - stable - outpatient follow up regard colonoscopy - follow CBC - Fe studies Hyponatremia, improving -Likely due to poor oral intake and malnutrition -follow electrolytes Moderate protein calorie malnutrition -Dietary recs -Social work consult - Patient only drinks juice at home, not willing to change habits Thrombocytosis, resolved DVT prophylaxis: heparin Discussed with: Patient Anticipated discharge date: 2-[address]: Home A total of 35 minutes was spent on the care of this complex patient more than 50 % of the time was spent in counseling and care coordination.
[2018-12-02] MEDS ORDERED: SODIUM CHLORIDE 0.9% 1,000 ML IV ONE (15:47)
[2018-12-02] MEDS ORDERED: LACTATED RINGERS 1,000 ML IV ONE (16:04)
[2018-12-02] MEDS ORDERED: MIDAZOLAM (PF) 2 MG/2 ML VIAL IV PRN (16:51)
[2018-12-02] MEDS ORDERED: fentaNYL (PF) 50 MCG/ML 2 ML AMP IV PRN (16:51)
[2018-12-02] MEDS ORDERED: LACTATED RINGERS 1,000 ML IV SCH (17:00)
[2018-12-02] MEDS ORDERED: ceFAZolin 1,000 MG in DEXTROSE/WATER 1 50ML.BAG IVPB STA (17:21)
[2018-12-02] MEDS ORDERED: LIDOCAINE 1% INJ 10MG/ML (20 ML MDV) ONE (17:51)
[2018-12-02] MEDS ORDERED: fentaNYL (PF) 50 MCG/ML 2 ML AMP ONE (17:51)
[2018-12-02] MEDS ORDERED: PROPOFOL 10 MG/ML 20 ML VIAL IV ONE (17:51)
--- NOTE | 2018-12-02 19:04 | P.OP ---
Date of Procedure: 12/02/18 Preoperative Diagnosis: 1. 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 Same Procedure(s) Performed: 1. Irrigation and surgical debridement of left chronic olecranon ulcer measuring 5 cm in length and 4 cm in width (nonviable skin, fat, and subcutaneous tissue was sharply debrided with a scalpel down to the layer of the fascia) 2. 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 He is been previously managed in [place]. The patient is a very poor historian due to a language barrier and difficulty hearing but states that he was told by his orthopedic surgeon in [place] that he had maxed out his care there and was sent to the [place] for further management. He is recently had surgical debridements and an attempt at closure in the office by his orthopedic [place] surgeon. He presented to the emergency department here and was admitted under internal medicine. He was initially seen by general surgery who deferred treatment orthopedics for concern about septic arthritis. At the time of my evaluation there is absolutely no clinical indication of septic arthritis as he had full pain-free range of motion of his elbow. He did have a chronic draining wound with purulent malodorous drainage. An MRI was obtained which showed an area of ulceration, and abscess, and osteomyelitis of the olecranon. My recommendation was to debride all of the non-viable tissue back to healthy bleeding base, irrigate the wound, and applied a wound VAC. The patient was agreeable to this. We discussed the potential risks and complications of surgery including but not limited to risk of anesthesia, continued infection, spread of the infection both locally and systemically, damage to local blood vessels or nerves , need for further surgery including repeat debridements, grafting, and amputation. The patient understands the potential risks and provided his his consent to go forward with surgery. Operative Findings: The wound was debrided back to healthy bleeding tissue. There is no exposed bone. Description of Procedure: The patient was identified in preoperative holding and the correct left arm was marked with my initials. I reviewed the consent form with the patient and all of his questions were answered. He was then brought back to the operating room. He was positioned on the OR table where a sedation was given by anesthesia. The left arm was then prepped and draped in the standard sterile fashion. Prior to starting surgery timeout was performed identifying the correct patient, operative extremity, and procedure. I began by thoroughly exploring the wound. There are multiple Prolene sutures and nonviable-appearing skin which were removed. There were also several deep Vicryl stitches which were also removed. The flap of skin over the olecranon was dusky and appeared nonviable. The skin was sharply debrided using a scalpel back to healthy, bleeding skin edges. There was area of purulence proximally and medially which was opened and debrided. A scalpel and curet was used to thoroughly debride the wound until all nonviable tissue was removed and the wound base was bleeding and appeared healthy. There is no exposed bone. Deep culture swabs were taken and a portion of the nonviable skin was sent to pathology to rule out malignancy. The wound was then thoroughly irrigated using 1 L of sterile saline and cystoscopy tubing. The wound was windowed with 1 inch Ioban and a wound VAC was placed, covered, and hooked up to suction. The suction was set to 125 mmHg and was found to have no leaks. The drapes were taken down and the left arm was wrapped with an Zain wrap. The patient was awoken from his sedation, transferred to a gurney and brought to PACU and procedure well. [facility] was required as a skilled logging assistant for patient positioning and application of wound VAC. Plan: The patient is going to be readmitted to the floor. He will receive IV antibiotics under the discretion of infectious disease. His wound VAC has been set to 125 mm of continuous suction. The wound appeared to be thoroughly debrided and back to healthy, bleeding tissue. I have no plans for further surgical intervention. We will take down the wound VAC on postoperative day #2, inspect the wound and then defer all further wound care to the wound team. He would likely benefit from home VAC dressing changes. I would also recommend a nutrition consult. We will continue to closely follow while he is in the hospital.
[2018-12-02] MEDS: HYDROmorphone 1 MG/ML 1 ML SYRINGE IVP ONE ×2 (19:17→19:36)
[2018-12-03] MEDS: SODIUM CHLORIDE 0.9% 1,000 ML IV SCH ×3 (05:58→23:10)
--- NOTE | 2018-12-03 06:13 | PN ---
PROGRESS NOTE DATE OF SERVICE: 12/02/2018 REASON FOR FOLLOWUP: Chronic infected left forearm ulcer. INTERVAL HISTORY: The patient is afebrile. The patient was seen earlier this morning. The patient has been breathing comfortably. Pain to the left forearm is currently controlled. Denies having any chest pain, shortness of breath or cough. No abdominal pain. No diarrhea. The patient did have MRI of the left elbow complete with concern for possible osteomyelitis. The patient subsequently taken to the OR and is status post irrigation and debridement of the left chronic olecranon ulcer with deep cultures and wound VAC was applied. PHYSICAL EXAMINATION: On examination, blood pressure is 168/82 with a pulse of 52, temperature 97.9. General description is an elderly male lying in bed in no distress. RESPIRATORY SYSTEM: Unlabored breathing, clear to auscultation anteriorly. HEART: S1, S2. Regular rate and rhythm. ABDOMEN: Soft, no tenderness. Left arm is currently dressed. No obvious drainage on the dressing. LABS: Wound culture finalized with MSSA and Citrobacter. Deep OR cultures currently pending. DIAGNOSTIC IMPRESSION AND PLAN: Patient with left olecranon osteomyelitis in a patient with a chronic nonhealing wound, status post debridement and deep cultures. Antibiotic will be changed to cefepime 2 grams q.12 to cover for both bacteria. The patient will need a PICC line for outpatient IV antibiotic therapy and possible placement will be discussing further with the porter sample case. Continue supportive care. MMODL / IJN: [id number] /
[2018-12-03] MEDS: HEPARIN SODIUM,PORCINE 5,000 UNIT/ML 1 ML VIAL SQ SCH ×2 (07:24→16:19)
[2018-12-03] MEDS: CEFEPIME 2 GM in SODIUM CHLORIDE 0.9% 50 ML IVPB SCH ×2 (07:27→22:18)
--- NOTE | 2018-12-03 12:16 | P.PN ---
Subjective Progress Note Date: 12/03/18 This patient is an 78-year-old male that presented to [facility] ED 10/31/18 for evaluation and treatment of a left elbow wound. The patient is a [place] citizen from [place], there is a language barrier present, and he is also a poor historian, as well as hard of hearing. Patient has reported a 16 year history with swelling to the left elbow, and with multiple debridements for his elbow in [place]. He reports he had a debridement one week prior, with the wound being closed, and now has experienced increased drainage from the site. Patient underwent a debridement in the operating room of this wound yesterday and an application of wound VAC with Dr. Briggs. Today is post-operative day #1. Patient states his pain in the left elbow is well-controlled. He states he is having no issues moving his fingers or hand. He denies numbness or tingling of the hand. He denies any new complaints today. Vital signs stable. Objective - Vital Signs Vital signs: Vital Signs Temp 97.9 F 12/03/18 07:00 Pulse 62 12/03/18 07:00 Resp 18 12/03/18 07:00 BP 159/77 12/03/18 07:00 Pulse Ox 99 12/03/18 07:00 Intake & Output 12/02/18 12/03/18 12/03/18 18:59 06:59 18:59 Intake Total 900 400 Output Total 20 Balance 880 400 Intake: IV 900 Oral 400 Output: Estimated Blood Loss 20 Other: Voiding Method Urinal Urinal # Voids 2 2 - Exam On examination, the patient is sitting up in bed in no acute distress. The patient is alert and oriented 3. On inspection of the left elbow, there is a wound VAC in place that is dressed with an Zain wrap. The dressing is clean, dry , and intact. Mild swelling of the left hand. The left upper extremity is warm and well perfused with brisk capillary refill. Left radial pulse palpable. Patient is able to wiggle his fingers with no issue. Neurovascular is intact of the left upper extremity. Sensation is intact to light touch of the left hand. - Labs CBC & Chem 7: 12/01/18 10:36 12/01/18 10:36 Labs: Microbiology - Last 24 Hours (Table) 11/29/18 15:46 Gram Stain - Final Elbow - Left Wound Culture - Final Citrobacter braakii Staphylococcus aureus 11/29/18 15:28 Blood Culture - Preliminary Blood No Growth after 72 hours Assessment and Plan Assessment: Open wound of the left elbow s/p debridement and wound VAC application Plan: - We will plan to change the left elbow wound VAC tomorrow, on postoperative day #2. Wound care will then be transferred to infectious disease. - Antibiotics per infectious disease. - Surgical specimen from left elbow sent to pathology. We will continue to follow for results. - Consult to dietitian placed to assess nutrition intake. - We will continue to follow and make recommendations accordingly. - Patient discussed with Dr. Briggs.
--- NOTE | 2018-12-03 16:03 | P.PN ---
Subjective Progress Note Date: 12/03/18 (delayed charting patient seen at 1330) Principal diagnosis: left elbow swelling Patient is an 78-year-old male who is extremely hard of hearing with no past medical history who initially presented to the emergency department with complaints of a left elbow wound with swelling. In the ER the patient underwent a comprehensive workup with a white blood cell count of 7.6, hemoglobin 9.8, platelets of 58, and elbow x-ray showing soft tissue swelling. He was placed on Vanco, Unasyn, and received 1 L of normal saline. He was admitted for further monitoring of left elbow infected ulcer. He reports that he received some care for this [place] but [place] Infectious disease was consulted who recommended continuing IV antibiotics. Orthopedics was consulted who recommended debridement of the area and an MRI. MRI showed abscess and possible osteomyelitis. He went for I and D with ortho on 12/02 and wound vac was placed. Patient seen and examined at bedside. He denies any pain in his elbow. No chest pain, SOB. Has constipation but does not want any medications. He states everything is fixed from the surgery. Had a long discussion with him that there is an infection in that elbow and may be extending down to the joint and he will need continued antibiotic therapy. He does not want any IV therapies at home as he states give him toxemia. Discussed with the patient that he will need antibiotic therapy as he could have worsening of this infection which could lead to requirements for repeated surgery. Patient states he understands but feels that the risks of antibiotics are high. We discussed him taking oral antibiotics and he indicates that he may take them at discharge but does not believe he needs any "poisons" in his system. He believes that continuing his juice diet which kept him healthy for 80 years and will continue to keep him healthy. Patient is alert and oriented 3 and does acknowledge that he has an infection however he does not want IV antibiotics, but is willing to take them here. I did discuss with him that this will increase his likelihood for need for readmission as well as worsening of the infection. I did discuss with him that he will need to follow with doctors at discharge for monitoring of his wound and infection, he indicates that he likely will not do this as well. He also has not been able to produce a social security number states that one of his friends can bring in his card. Case management has not been able to get in touch with this friend. I have introduced myself as Dr. Roland several times and indicated that I am a physician. However, the patient still referrs to me asking permission from his male doctor (ID) and surgeon. Objective - Vital Signs Vital signs: Vital Signs Temp 98.7 F 12/03/18 15:00 Pulse 68 12/03/18 15:00 Resp 20 12/03/18 15:00 BP 147/74 12/03/18 15:00 Pulse Ox 96 12/03/18 15:00 Intake & Output 12/02/18 12/03/18 12/03/18 18:59 06:59 18:59 Intake Total 900 400 400 Output Total 20 500 Balance 880 400 -100 Weight 44.18 kg Intake: IV 900 Oral 400 400 Output: Urine 500 Estimated Blood Loss 20 Other: Voiding Method Urinal Urinal # Voids 2 2 - Exam General: non toxic, no distress, appears at stated age Derm: Dressing applied to left arm with wound vac in place + edema of left hand. , warm, dry Head: atraumatic, normocephalic, symmetric Eyes: EOMI, no lid lag, anicteric sclera Mouth: no lip lesion, mucus membranes moist Cardiovascular: S1S2 reg, no murmur, positive posterior tibial pulse bilateral, Lungs: CTA bilateral, no rhonchi, no rales , no accessory muscle use Abdominal: soft, nontender to palpation, no guarding, no appreciable organomegaly Ext: no gross muscle atrophy, no edema, no contractures Neuro: CN II-XI grossly intact, no focal neuro deficits Psych: Alert, oriented, appropriate affect - Labs CBC & Chem 7: 12/01/18 10:36 12/01/18 10:36 Labs: Microbiology - Last 24 Hours (Table) 12/02/18 18:30 Anaerobic Culture - Preliminary Elbow - Left 12/02/18 18:30 Wound Culture - Preliminary Elbow - Left 11/29/18 15:46 Gram Stain - Final Elbow - Left Wound Culture - Final Citrobacter braakii Staphylococcus aureus 11/29/18 15:28 Blood Culture - Preliminary Blood No Growth after 72 hours Assessment and Plan Assessment: Left elbow ulcer with infection 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 Patient is not willing to take IV antibiotics at home, ID notified by CM. Patient ideally would benefit from IV abx but has no insurnace and is not willing to take them (see above detailed discussion). He will also likely be non compliant with oral medications but is willing to try them. -cefepime -Patient without insurance Normocytic anemia - stable - outpatient follow up regard colonoscopy - follow CBC - Fe studies pending Hyponatremia, improving -Likely due to poor oral intake and malnutrition -follow electrolytes Moderate protein calorie malnutrition -Dietary recs -Social work consult - Patient only drinks juice at home, not willing to change habits Thrombocytosis, resolved DVT prophylaxis: heparin Discussed with: Patient Anticipated discharge date:1-[address]: Home A total of 40 minutes was spent on the care of this complex patient more than 50 % of the time was spent in counseling and care coordination.
--- NOTE | 2018-12-04 00:04 | PN ---
PROGRESS NOTE DATE OF SERVICE: 12/03/2018. REASON FOR FOLLOWUP: Left olecranon bursitis with underlying osteomyelitis. INTERVAL HISTORY: The patient is currently afebrile. He is breathing comfortably. Denies having any chest pain or any cough. Denies pain to the left forearm. No diarrhea. PHYSICAL EXAMINATION: Blood pressure is 147/74 with a pulse of 68, temperature 98.7, he is 96% on room air. GENERAL DESCRIPTION: An elderly male lying in bed in no distress. RESPIRATORY SYSTEM: Unlabored breathing. Clear to auscultation anteriorly. HEART: S1, S2. Regular rate and rhythm. ABDOMEN: Soft, no tenderness. Left arm elbow wound is currently covered with wound VAC. LABS: No new labs been obtained today. Wound culture positive for Citrobacter and MSSA. Anaerobic culture so far negative. DIAGNOSTIC IMPRESSION AND PLAN: Patient with chronic nonhealing wound to the left forearm and elbow area. The patient is status post extensive debridement with evidence of recurrent osteomyelitis. Culture positive for Citrobacter and MSSA. The patient is currently on cefepime to cover for both pathogen. Unfortunately, the patient has been refusing IV antibiotic and a PICC line. It would be hard to place because of inability to provide any insurance documents to the case work aide. If the patient continues to refuse PICC line, antibiotic can be transitioned to oral Cipro and Keflex. Local wound care, will benefit with wound VAC, however, if that cannot be arranged can be transitioned to silver dressing. This were discussed in detail with the case work aide. Continue supportive care. MMODL / IJN: [id number] /
[2018-12-04] MEDS: HEPARIN SODIUM,PORCINE 5,000 UNIT/ML 1 ML VIAL SQ SCH ×4 (01:29→23:59)
[2018-12-04] MEDS: SODIUM CHLORIDE 0.9% 1,000 ML IV SCH ×3 (06:24→23:58)
[2018-12-04] MEDS: CEFEPIME 2 GM in SODIUM CHLORIDE 0.9% 50 ML IVPB SCH ×2 (07:31→20:29)
--- NOTE | 2018-12-04 10:27 | P.PN ---
Subjective Progress Note Date: 12/04/18 The patient is doing well this morning and his pain is well-controlled. He has no acute complaints. Objective - Vital Signs Vital signs: Vital Signs Temp 97.8 F 12/04/18 05:50 Pulse 46 L 12/04/18 05:50 Resp 20 12/04/18 05:50 BP 145/68 12/04/18 05:50 Pulse Ox 96 12/04/18 05:50 Intake & Output 12/03/18 12/04/18 12/04/18 18:59 06:59 18:59 Intake Total 400 500 Output Total 500 Balance -100 500 Weight 44.18 kg Intake: Oral 400 500 Output: Urine 500 Other: Voiding Method Urinal # Voids 1 - Exam A focused exam of the left upper extremity was conducted. The wound VAC was taken down. The wound appears clean with no purulence. There is a healthy bed of granulation tissue beginning to form. - Labs CBC & Chem 7: 12/01/18 10:36 12/01/18 10:36 Labs: Abnormal Lab Results - Last 24 Hours (Table) 12/01/18 Range/Units 10:36 Iron 38 L (65-175) ug/dL TIBC 190 L (228-460) ug/dL Microbiology - Last 24 Hours (Table) 12/02/18 18:30 Wound Culture - Preliminary Elbow - Left 11/29/18 15:28 Blood Culture - Preliminary Blood No Growth after 96 hours 12/02/18 18:30 Anaerobic Culture - Preliminary Elbow - Left Assessment and Plan (1) Wound, open, arm, forearm Current Visit: Yes Status: Acute Code(s): S51.809A - UNSPECIFIED OPEN WOUND OF UNSPECIFIED FOREARM, INIT ENCNTR SNOMED Code(s): 643293285 Plan: I will defer to infectious disease for further recommendation on antibiotics and wound care. We took down the VAC dressing this morning and the wound appeared clean with no purulence. I think he would benefit from home VAC dressing changes if he will allow. I understand that compliance is difficult. I tried to and stressed the importance of compliance with wound care recommendations. We will assist with nursing to place a VAC dressing this morning and then defer further wound care to infectious disease. I've no plans for further surgical intervention at this time. He is okay to discharge from an orthopedic standpoint.
--- NOTE | 2018-12-04 11:50 | P.PN ---
Subjective Progress Note Date: 12/04/18 Principal diagnosis: left elbow swelling Patient is an 78-year-old male who is extremely hard of hearing with no past medical history who initially presented to the emergency department with complaints of a left elbow wound with swelling. In the ER the patient underwent a comprehensive workup with a white blood cell count of 7.6, hemoglobin 9.8, platelets of 58, and elbow x-ray showing soft tissue swelling. He was placed on Vanco, Unasyn, and received 1 L of normal saline. He was admitted for further monitoring of left elbow infected ulcer. He reports that he received some care for this in [place] Infectious disease was consulted who recommended continuing IV antibiotics. Orthopedics was consulted who recommended debridement of the area and an MRI. MRI showed abscess and possible osteomyelitis. He went for I and D with ortho on 12/02 and wound vac was placed. Wound vac changed on 12/04. Patient will not be a candidate for IV abx as he is not willling to receive them and has no insurance at this time. He is also not willing to have a wound vac at home and has been refusing multiple blood draws. ID has mad eoral antibiotic recs for discharge in hope that the patient will take them, but patient states he may not take them. ID also recommends silver dressing if patient unable to have wound vac. Patient refused blood work again this morning. Patient seen and examined at bedside. He denies any pain in his elbow. Denies any chest pain, shortness of breath, diarrhea, or constipation. He tells he is not willing to talk about his constipation today. Again expressed the need to take medications such as antibiotics when he leaves and he is unsure if he would be willing to take those. Objective - Vital Signs Vital signs: Vital Signs Temp 97.8 F 12/04/18 05:50 Pulse 46 L 12/04/18 05:50 Resp 20 12/04/18 05:50 BP 145/68 12/04/18 05:50 Pulse Ox 96 12/04/18 05:50 Intake & Output 12/03/18 12/04/18 12/04/18 18:59 06:59 18:59 Intake Total 400 500 Output Total 500 Balance -100 500 Weight 44.18 kg Intake: Oral 400 500 Output: Urine 500 Other: Voiding Method Urinal # Voids 1 - Exam General: non toxic, no distress, appears at stated age Derm: Dressing applied to left arm with wound vac in place + edema of left hand. , warm, dry Head: atraumatic, normocephalic, symmetric Eyes: EOMI, no lid lag, anicteric sclera Cardiovascular: S1S2 reg, no murmur, positive posterior tibial pulse bilateral, Lungs: CTA bilateral, no rhonchi, no rales , no accessory muscle use Abdominal: soft, nontender to palpation, no guarding, no appreciable organomegaly Ext: no gross muscle atrophy, no edema, no contractures Psych: Alert, oriented, appropriate affect - Labs CBC & Chem 7: 12/01/18 10:36 12/01/18 10:36 Labs: Abnormal Lab Results - Last 24 Hours (Table) 12/01/18 Range/Units 10:36 Iron 38 L (65-175) ug/dL TIBC 190 L (228-460) ug/dL Microbiology - Last 24 Hours (Table) 12/02/18 18:30 Wound Culture - Preliminary Elbow - Left 11/29/18 15:28 Blood Culture - Preliminary Blood No Growth after 96 hours 12/02/18 18:30 Anaerobic Culture - Preliminary Elbow - Left Assessment and Plan Assessment: Left elbow ulcer with infection 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 Patient is not willing to take IV antibiotics at home, and unable to have wound vac. Plan is IV ABX and wound vac X 48 hours more and then home on cipro and keflex (will have filled at our pharmacy to increase likely quick of patient getting Rx filled), will also plan on supplying patient with dressing supplies -cefepime Normocytic anemia - stable - Patient refusing outpatient follow-up with PCP - follow CBC - Ferritin low normal patient not willing for supplements at this time. Hyponatremia, improving -Likely due to poor oral intake and malnutrition -follow electrolytes (Patient refusing IVF and lab draws) Moderate protein calorie malnutrition -Dietary recs -Social work - Patient only drinks juice at home, not willing to change habits Thrombocytosis, resolved Due to patients aversion to antibiotics and lack of social resources he is at high risk for readmission. As outline above we will do everything we can to help him be successful in the outpatient setting. DVT prophylaxis: heparin Discussed with: Patient, CM, nursing Anticipated discharge date: Sunday Anticipated discharge place: Home A total of 35 minutes was spent on the care of this complex patient more than 50 % of the time was spent in counseling and care coordination.
--- NOTE | 2018-12-04 22:38 | PN ---
PROGRESS NOTE DATE OF SERVICE: 12/04/2018. REASON FOR FOLLOWUP: The left wound and osteomyelitis. INTERVAL HISTORY: The patient is currently afebrile, has been breathing comfortably. Denies having any chest pain. No cough. No abdominal pain. the left forearm area. PHYSICAL EXAMINATION: Blood pressure is 119/60 with a pulse of 52, temperature of 98.2, he is 98% on room air. General description is an elderly male lying in bed in no distress. Respiratory system: Unlabored breathing. Clear to auscultation anteriorly. Heart S1, S2. Regular rate and rhythm. Abdomen soft. No tenderness. Left elbow wound currently covered with wound VAC. LABORATORY DATA: No new has been obtained today. Wound cultures showed Acinetobacter MSSA. DIAGNOSTIC IMPRESSION/PLAN: Patient with chronic wound to the left elbow forearm area in this patient who did have a component of underlying osteomyelitis. Culture positive for Citrobacter and this patient is currently on , continue to follow. Unfortunately, the patient has not been able to hence the case as you would have benefit from continuation of IV antibiotic and the wound VAC. Continue with supportive care at this point. MMODL / IJN: [id number] /
[2018-12-05] MEDS: SODIUM CHLORIDE 0.9% 1,000 ML IV SCH ×2 (05:54→15:50)
[2018-12-05] MEDS: CEFEPIME 2 GM in SODIUM CHLORIDE 0.9% 50 ML IVPB SCH (08:14)
[2018-12-05] MEDS: HEPARIN SODIUM,PORCINE 5,000 UNIT/ML 1 ML VIAL SQ SCH ×2 (08:14→15:50)
--- NOTE | 2018-12-05 11:39 | P.PN ---
Subjective Progress Note Date: 12/05/18 This patient is an 78-year-old male that presented to [facility] ED 10/31/18 for evaluation and treatment of a left elbow wound. The patient is a [place] citizen from [place], there is a language barrier present, and he is also a poor historian, as well as hard of hearing. Patient has reported a 16 year history with swelling to the left elbow, and with multiple debridements for his elbow in [place]. He reports he had a debridement one week prior, with the wound being closed, and now has experienced increased drainage from the site. Patient underwent a debridement in the operating room of this wound yesterday and an application of wound VAC with Dr. Briggs. Today is post-operative day #3. Patient states his pain in the left elbow is well-controlled. He states he is having no issues moving his fingers or hand. He denies numbness or tingling of the hand. He denies any new complaints today. Vital signs stable. Objective - Vital Signs Vital signs: Vital Signs Temp 98 F 12/04/18 22:00 Pulse 46 L 12/04/18 22:00 Resp 20 12/04/18 22:00 BP 149/75 12/04/18 22:00 Pulse Ox 99 12/04/18 22:00 Intake & Output 12/04/18 12/05/18 12/05/18 18:59 06:59 18:59 Intake Total 650 100 Balance 650 100 Weight 44.18 kg Intake: Oral 650 100 Other: Voiding Method Urinal # Voids 1 2 - Exam On examination, the patient is sitting up in bed in no acute distress. The patient is alert and oriented 3. On inspection of the left elbow, there is a wound VAC in place. The left upper extremity is warm and well perfused with brisk capillary refill. Left radial pulse palpable. Patient is able to wiggle his fingers with no issue. Neurovascular is intact of the left upper extremity. Sensation is intact to light touch of the left hand. - Labs CBC & Chem 7: 12/01/18 10:36 12/01/18 10:36 Labs: Microbiology - Last 24 Hours (Table) 12/02/18 18:30 Gram Stain - Final Elbow - Left Wound Culture - Final 11/29/18 15:28 Blood Culture - Preliminary Blood No Growth after 120 hours Assessment and Plan Assessment: Open wound of the left elbow s/p debridement and wound VAC application Plan: - Wound VAC placed yesterday. We will defer wound care to infectious disease moving forward. - Antibiotics per infectious disease. - Surgical specimen from left elbow sent to pathology revealed benign skin with subcutaneous abscess. - No plans for further surgical intervention at this time. Patient ok for discharge from orthopedic standpoint. - Patient discussed with Dr. Briggs.
--- NOTE | 2018-12-05 12:26 | P.PN ---
Subjective Progress Note Date: 12/05/18 Principal diagnosis: Patient is an 78-year-old male who is extremely hard of hearing with no past medical history who initially presented to the emergency department with complaints of a left elbow wound with swelling. In the ER the patient underwent a comprehensive workup with a white blood cell count of 7.6, hemoglobin 9.8, platelets of 58, and elbow x-ray showing soft tissue swelling. He was placed on Vanco, Unasyn, and received 1 L of normal saline. He was admitted for further monitoring of left elbow infected ulcer. He reports that he received some care for this in [place] but [place] Infectious disease was consulted who recommended continuing IV antibiotics. Orthopedics was consulted who recommended debridement of the area and an MRI. MRI showed abscess and possible osteomyelitis. He went for I and D with ortho on 12/02 and wound vac was placed. Wound cultures grew Citrobacter braaki and Staphylococcus aureus. Wound vac changed on 12/04. Patient will not be a candidate for IV abx as he is not willling to receive them and has no insurance at this time. He is also not willing to have a wound vac at home and has been refusing multiple blood draws. ID has made oral antibiotic recs for discharge in hope that the patient will take them, but patient states he may not take them. ID also recommends silver dressing if patient unable to have wound vac. Patient seen and examined at bedside lay recumbent in bed wound VAC in place on left elbow patient denies any pain. Patient excited about being discharged home tomorrow. I discussed plan of care patient reported that he would follow- up for wound care as needed. Otherwise no acute events overnight Objective - Vital Signs Vital signs: Vital Signs Temp 98 F 12/04/18 22:00 Pulse 46 L 12/04/18 22:00 Resp 20 12/04/18 22:00 BP 149/75 12/04/18 22:00 Pulse Ox 99 12/04/18 22:00 Intake & Output 12/04/18 12/05/18 12/05/18 18:59 06:59 18:59 Intake Total 650 100 Balance 650 100 Weight 44.18 kg Intake: Oral 650 100 Other: Voiding Method Urinal # Voids 1 2 - Exam General: non toxic, no distress, appears at stated age Derm: Dressing applied to left arm with wound vac in place + edema of left hand. , warm, dry Head: atraumatic, normocephalic, symmetric Eyes: EOMI, no lid lag, anicteric sclera Cardiovascular: S1S2 reg, no murmur, positive posterior tibial pulse bilateral, Lungs: CTA bilateral, no rhonchi, no rales , no accessory muscle use Abdominal: soft, nontender to palpation, no guarding, no appreciable organomegaly Ext: no gross muscle atrophy, no edema, no contractures Psych: Alert, oriented, appropriate affect - Labs CBC & Chem 7: 12/01/18 10:36 12/01/18 10:36 Labs: Microbiology - Last 24 Hours (Table) 12/02/18 18:30 Gram Stain - Final Elbow - Left Wound Culture - Final 11/29/18 15:28 Blood Culture - Preliminary Blood No Growth after 120 hours Assessment and Plan Assessment: Left elbow ulcer with infection 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 Patient is not willing to take IV antibiotics at home, and unable to have wound vac. Plan is IV ABX and wound vac X for the next 24 hours and then home on cipro and keflex (will have filled at our pharmacy to increase likely quick of patient getting Rx filled), will also plan on supplying patient with dressing supplies -cefepime Normocytic anemia - stable - Patient refusing outpatient follow-up with PCP - follow CBC - Ferritin low normal patient not willing for supplements at this time. Hyponatremia, improving up to 132 today from 128 -Likely due to poor oral intake and malnutrition -follow electrolytes (Patient refusing IVF and lab draws) Moderate protein calorie malnutrition -Dietary recs -Social work - Patient only drinks juice at home, not willing to change habits Thrombocytosis, resolved Due to patients aversion to antibiotics and lack of social resources he is at high risk for readmission. As outline above we will do everything we can to help him be successful in the outpatient setting. DVT prophylaxis: heparin Discussed with: Patient, CM, nursing Anticipated discharge date: Sunday Anticipated discharge place: Home A total of 35 minutes was spent on the care of this complex patient more than 50 % of the time was spent in counseling and care coordination.
[2018-12-05] MEDS: CEFEPIME 2 GM in SODIUM CHLORIDE 0.9% 100 ML IVPB SCH (21:32)
[2018-12-05 23:04] VITALS: PULSE 48; RESP 16
[2018-12-06] MEDS: HEPARIN SODIUM,PORCINE 5,000 UNIT/ML 1 ML VIAL SQ SCH ×2 (01:16→08:15)
[2018-12-06] MEDS: SODIUM CHLORIDE 0.9% 1,000 ML IV SCH ×2 (01:16→08:15)
[2018-12-06 06:12] VITALS: BP 135/63; TEMP 98.2
--- NOTE | 2018-12-06 07:46 | PN ---
PROGRESS NOTE DATE OF SERVICE: 12/05/2018. REASON FOR FOLLOWUP: Left olecranon nonhealing wound with underlying osteomyelitis. INTERVAL HISTORY: The patient is currently afebrile, has been breathing comfortably. Denies having any chest pain or any cough. No pain in the left elbow/forearm wound area. No abdominal pain, no diarrhea with antibiotic therapy. PHYSICAL EXAMINATION: On examination, blood pressure 143/69 with a pulse of 61, temperature of 98. He is 96% on room air. General description is an elderly male lying in bed in no distress. RESPIRATORY SYSTEM: Unlabored breathing, clear to auscultation anteriorly. HEART: S1, S2. Regular rate and rhythm. ABDOMEN: Soft, no tenderness. Left wound is currently covered with wound VAC. No surrounding redness. LABS: No new labs have been obtained today. DIAGNOSTIC IMPRESSION AND PLAN: Patient with chronic nonhealing wound to the left elbow and forearm area. The patient is status post extensive debridement with evidence of olecranon osteomyelitis. Unfortunately, the patient is unable to provide his social security number so his insurance or benefits could be tracked down as the patient could benefit from a continuation of the wound VAC and IV antibiotic therapy. Will re-evaluate the wound tomorrow. Continue with cefepime 2 grams q.12 hours to cover for both the cultures. Continue supportive care. MMODL / IJN: [id number] /
[2018-12-06] MEDS: CEFEPIME 2 GM in SODIUM CHLORIDE 0.9% 100 ML IVPB SCH (08:14)
--- NOTE | 2018-12-06 08:51 | P.DS ---
Providers Date of admission: 12/01/18 14:27 Expected date of discharge: 12/06/18 Attending physician: Cathi Bolivar MD Consults: 11/29/18 16:49 Consult Physician Stat Consulting Provider: Lynne Wagner Consult Reason/Comments: open wound Do you want consulting provider notified?: Already Contacted 11/30/18 07:40 Consult Physician Urgent Consulting Provider: Tara Wilkinson Consult Reason/Comments: L elbow ulcer Do you want consulting provider notified?: Already Contacted 12/01/18 10:28 Consult Physician Urgent Consulting Provider: Damir Briggs Consult Reason/Comments: L elbow wound involving the joint space Do you want consulting provider notified?: Yes Primary care physician: Stated None - Discharge Diagnosis(es) (1) Unstageable pressure ulcer of left elbow Current Visit: Yes Status: Acute (2) Osteomyelitis of left elbow Current Visit: Yes Status: Acute (3) Normocytic anemia Current Visit: Yes Status: Acute (4) Moderate protein-energy malnutrition Current Visit: Yes Status: Acute (5) Thrombocytosis Current Visit: Yes Status: Acute Hospital Course: Patient is an 78-year-old male who is extremely hard of hearing with no past medical history who initially presented to the emergency department with complaints of a left elbow wound with swelling. In the ER the patient underwent a comprehensive workup with a white blood cell count of 7.6, hemoglobin 9.8, platelets of 58, and elbow x-ray showing soft tissue swelling. He was placed on Vanco, Unasyn, and received 1 L of normal saline. He was admitted for further monitoring of left elbow infected ulcer. He reports that he received some care for this [place] but [place] Infectious disease was consulted who recommended continuing IV antibiotics. Orthopedics was consulted who recommended debridement of the area and an MRI. MRI showed abscess and possible osteomyelitis. He went for I and D with ortho on 12/02 and wound vac was placed. Wound cultures grew Acinobater Citrobacter braaki and MS Staphylococcus aureus. Wound vac changed on 12/04. Patient will not be a candidate for IV abx as he is not willling to receive them and has no insurance at this time. He is also not willing to have a wound vac at home and has been refusing multiple blood draws. ID has made oral antibiotic recs for discharge in hope that the patient will take them, but patient states he may not take them. The patient was transitioned to oral antibiotics with the guidance of infectious disease to continue Keflex and ciprofloxacin for another 3 weeks post discharge. Patient is subsequently discharged home in stable condition after removal of his wound VAC with plans to follow-up for wound care with Dr. Briggs. This discharge process took approximately 35 minutes. Focused exam Extremities: Wound VAC on the left elbow in place, left upper extremity with palpable radial and ulnar pulses, neurovascularly intact. Patient Condition at Discharge: Good Plan - Discharge Summary Discharge Rx Participant: No New Discharge Prescriptions: New Cephalexin [Keflex] 500 mg PO Q12HR #42 cap Ciprofloxacin HCl [Cipro] 500 mg PO BID 21 Days #42 tab Discharge Medication List Cephalexin [Keflex] 500 mg PO Q12HR #42 cap 12/06/18 [Rx] Ciprofloxacin HCl [Cipro] 500 mg PO BID 21 Days #42 tab 12/06/18 [Rx] Follow up Appointment(s)/Referral(s): None,Stated [Primary Care Provider] - 1-2 days Damir Briggs MD [Medical Doctor] - 12/13/18 9:30 am Activity/Diet/Wound Care/Special Instructions: Please make sure you follow up with your Medicaid process after discharge. Discharge Disposition: HOME SELF-CARE
--- NOTE | 2018-12-06 09:01 | PN ---
PROGRESS NOTE DATE OF SERVICE: 12/05/2018 REASON FOR FOLLOWUP: Left olecranon nonhealing wound with underlying osteomyelitis. INTERVAL HISTORY: The patient is currently afebrile, has been breathing comfortably. Denies having any chest pain or any cough. No pain in the left elbow/forearm wound area. No abdominal pain, no diarrhea with antibiotic therapy. PHYSICAL EXAMINATION: On examination, blood pressure 143/69 with a pulse of 61, temperature of 98. He is 96% on room air. General description is an elderly male lying in bed in no distress. RESPIRATORY SYSTEM: Unlabored breathing, clear to auscultation anteriorly. HEART: S1, S2. Regular rate and rhythm. ABDOMEN: Soft, no tenderness. Left wound is currently covered with wound VAC. No surrounding redness. LABS: No new labs have been obtained today. DIAGNOSTIC IMPRESSION AND PLAN: Patient with chronic nonhealing wound to the left elbow and forearm area. The patient is status post extensive debridement with evidence of olecranon osteomyelitis. Unfortunately, the patient is unable to provide his social security number so his insurance or benefits could be tracked down as the patient could benefit from a continuation of the wound VAC and IV antibiotic therapy. Will re-evalute the wound tomorrow. Continue with cefepime 2 gram q.12 hours to cover for both the culture. Continue supportive care. MMODL / IJN: [id number] /
[2018-12-06] MEDS ORDERED: SILVER sulfADIAZINE Cream 400 GM 1 APPLIC APPLIC TOPICAL SCH (21:00)
--- NOTE | 2018-12-09 19:36 | CDI ---
Documentation Clarification Form Date: 12-09-18 From: DEE Phan Phone: If you have question, contact Juanis Contreras at [phone] M-F 8:30 am to 6pm Admit Date: 12/01/2018 2:27:00 PM Patient Name: Lonny Keen Visit Number: [id number] Discharge Date: 12/06/2018 12:00:00 PM ATTENTION: The Clinical Documentation Specialists (CDI) and [facility] Coding Staff appreciate your assistance in clarifying documentation. Please respond to the clarification below the line at the bottom and electronically sign. The CDI & [facility] Coding staff will review the response and follow-up if needed. Please note: Queries are made part of the Legal Health Record. If you have any questions, please contact the author of this message via ITS. Dr. Rubén Jarrett MD The patient presented with a left elbow ulcer and was started on unasyn and vancomycin. According to the patient he reports a 16 year history of swelling of his proximal left elbow. Physical exam of the skin revealed a 4-5 cm ulcer incorporating muscle with active purulent drainage. On 12/02 he underwent a irrigation and debridement of the ulcer where evidence of osteomyelitis was found. Throughout the chart this is called a chronic nonhealing wound. According to the discharge summary this ulcer is documented as an unstageable pressure ulcer. Further clarification is needed for reporting purposes due to this conflicting documentation. In your professional opinion, can you please clarify if the elbow ulcer is a nonhealing wound or a unstageable pressure ulcer? Unable to determine MTDD
== END 2018-12-06 12:00 | disposition home or self-care (01) | DRG 464 ==
LOC: EC 14:19 → 4MS4W 16:42 → OBSVTOIN 12-01 14:27
PROVIDERS: ADMIT Family Medicine; ATTEND Family Medicine
PROC: 0JBH0ZZ Excision of Left Lower Arm Subcutaneous Tissue and Fascia, Open Approach (ICD-10-PCS; principal; 2018-12-01)
DX: M86.18 Other acute osteomyelitis, other site (principal); L03.114 Cellulitis of left upper limb; E87.1 Hypo-osmolality and hyponatremia; E44.0 Moderate protein-calorie malnutrition; L98.499 Non-pressure chronic ulcer of skin of other sites with unspecified severity; E86.0 Dehydration; E87.8 Other disorders of electrolyte and fluid balance, not elsewhere classified; D64.9 Anemia, unspecified; H91.90 Unspecified hearing loss, unspecified ear; D47.3 Essential (hemorrhagic) thrombocythemia; M70.22 Olecranon bursitis, left elbow; K59.00 Constipation, unspecified; Z91.14 Patient's other noncompliance with medication regimen; Z82.49 Family history of ischemic heart disease and other diseases of the circulatory system; S51.002S Unspecified open wound of left elbow, sequela
CPT/HCPCS: 36415; 80048; 80053; 81003; 82728; 83540; 83550; 83605; 85025; 85027; 85610; 85730; 87040; 87070; 87075; 87077; 87186; 87205; 88304; 96365; 96366; 96368; 99284